=== PATIENT | male | born 1925 | race Caucasian/White ===

== ENCOUNTER 2016-09-07 12:47 | Outpatient (CLI) | payer MEDICARE, OTHER ==
[2016-04-13 21:49] VITALS: BP 140/93
== END 2016-09-07 12:50 ==
LOC: POD 12:47
PROVIDERS: ATTEND Podiatrist
DX: B35.1 Tinea unguium (principal); M79.674 Pain in right toe(s); M79.675 Pain in left toe(s)
CPT/HCPCS: 11721; G0463

== ENCOUNTER 2016-11-23 13:08 | Outpatient (CLI) | payer MEDICARE, OTHER ==
[2016-04-13 21:49] VITALS: BP 140/93
== END 2016-11-23 13:10 ==
LOC: POD 13:08
PROVIDERS: ATTEND Podiatrist
DX: B35.1 Tinea unguium (principal); M79.674 Pain in right toe(s); M79.675 Pain in left toe(s)
CPT/HCPCS: 11721; G0463